=== PATIENT | female | born 1965 | race Caucasian/White ===

== ENCOUNTER 2018-01-21 15:49 | Emergency (ER) | payer MEDICARE ==
[2018-01-21 16:16] LABS: BASOPHILS % (AUTO) 0.4 % (0.0-5.0); EOSINOPHILS % (AUTO) 2.2 % (0.0-8.0); HEMATOCRIT 39.3 % (36-48); MEAN CORPUSCULAR HEMOGLOBIN 30.6 pg (27.0-33.0); MEAN CORPUSCULAR HGB CONC 34.8 g/dL (32.0-36.0); MEAN CORPUSCULAR VOLUME 87.9 fL (79-99); MONOCYTES % (AUTO) 7.2 % (3.0-13.0); NEUTROPHILS % (AUTO) 63.2 % (40.0-77.0); PLATELET COUNT (AUTO) 305 K/uL (130-400); RED BLOOD CELL COUNT(AUTO) 4.47 MIL/uL (4.00-5.50); WHITE BLOOD COUNT (AUTO) 7.3 K/uL (4.8-10.8)
[2018-01-21 16:27] LABS: CREATININE 0.8 mg/dL (0.5-1.5)
[2018-01-21 16:41] LABS: ALBUMIN 4.1 g/dL (3.5-5.0); BILIRUBIN,TOTAL 0.3 mg/dL (0.2-1.0); CREATINE KINASE MB 1.1 ng/mL (0.5-3.6); INR 0.97 (0.85-1.15); PROTHROMBIN TIME 10.2 SEC (9.6-11.6); TOTAL PROTEIN, SERUM 7.5 g/dL (6.0-8.3)
[2018-01-21] MEDS ORDERED: OCTYL 2-CYANOACRYLATE 1 EACH TP ONE (16:58)
[2018-01-21] MEDS ORDERED: TETANUS/DIPHTHERIA TOXOID [ADULT] 0.5 ML VIAL IM ONE (17:08)
[2018-01-21] MEDS ORDERED: TRAMADOL HCL 50 MG TABLET ONE ×2 (18:04→18:07)
== END 2018-01-21 18:26 | disposition home or self-care (01) ==
LOC: EDH 15:49
DX: S01.81XA Laceration without foreign body of other part of head, initial encounter (principal); S01.01XA Laceration without foreign body of scalp, initial encounter; S50.01XA Contusion of right elbow, initial encounter; S29.8XXA Other specified injuries of thorax, initial encounter; Z86.73 Personal history of transient ischemic attack (TIA), and cerebral infarction without residual deficits; Z98.890 Other specified postprocedural states; W18.39XA Other fall on same level, initial encounter; Y93.89 Activity, other specified; Y92.89 Other specified places as the place of occurrence of the external cause; Y99.8 Other external cause status
CPT/HCPCS: 12011; 36415; 70450; 70486; 71045; 72125; 80053; 82550; 82553; 84484; 85025; 85610; 85730; 90471; 90714; 93005

== ENCOUNTER 2018-10-14 18:41 | Inpatient (IN) | payer MEDICARE ==
[~2018-10-14] VITALS: Ht 162.6 cm; Wt 58.1 kg
[2018-10-14] MEDS ORDERED: ALTEPLASE 100 MG VIAL ONE (19:15)
[2018-10-14 19:23] LABS: BASOPHILS % (AUTO) 0.6 % (0.0-5.0); CREATININE 0.8 mg/dL (0.5-1.5); HEMATOCRIT 38.5 % (36-48); LYMPHOCYTES % (AUTO) 26.9 % (21.0-51.0); MEAN CORPUSCULAR HEMOGLOBIN 31.2 pg (27.0-33.0); MEAN CORPUSCULAR HGB CONC 33.7 g/dL (32.0-36.0); MEAN CORPUSCULAR VOLUME 92.5 fL (79-99); NEUTROPHILS % (AUTO) 63.5 % (40.0-77.0); PLATELET COUNT (AUTO) 225 K/uL (130-400); POTASSIUM 3.7 mmol/L (3.5-5.1); RED BLOOD CELL COUNT(AUTO) 4.16 MIL/uL (4.00-5.50); RED CELL DISTRIBUTION WIDTH 15.2 % (11.0-15.5); WHITE BLOOD COUNT (AUTO) 5.2 K/uL (4.8-10.8)
[2018-10-14 19:26] LABS: INR 0.92 (0.85-1.15); PARTIAL THROMBOPLASTIN TIME 25.1 SEC (26.3-35.5); PROTHROMBIN TIME 9.7 SEC (9.6-11.6)
[2018-10-14 19:29] LABS: BILIRUBIN,TOTAL 0.2 mg/dL (0.2-1.0); TOTAL PROTEIN, SERUM 7.3 g/dL (6.0-8.3)
[2018-10-14 21:14] LABS: APPEARANCE,URINE Clear (CLEAR); BILIRUBIN,URINE Negative (NEGATIVE); COLOR,URINE Yellow (YELLOW); GLUCOSE, URINE (UA) Negative (NEGATIVE); KETONES,URINE Negative (NEGATIVE); LEUKOCYTE ESTERASE ,URINE Small (NEGATIVE); NITRATE,URINE Positive (NEGATIVE); OCCULT BLOOD,URINE Negative (NEGATIVE); PH,URINE 6.5 (5.0-8.0); PROTEIN,URINE Negative (NEGATIVE); UROBILINOGEN,URINE 0.2 mg/dL (0.2-1.0)
[2018-10-14 21:22] LABS: AMPHET/METH SCREEN,URINE NEGATIVE (NEGATIVE); BARBITURATE SCREEN, URINE NEGATIVE (NEGATIVE); BENZODIAZEPINES SCREEN,URINE NEGATIVE (NEGATIVE); CANNABINOID SCREEN,URINE NEGATIVE (NEGATIVE); COCAINE SCREEN,URINE NEGATIVE (NEGATIVE); OPIATE SCREEN,URINE NEGATIVE (NEGATIVE); PHENCYCLIDINE SCREEN,URINE NEGATIVE (NEGATIVE)
[2018-10-14 21:45] LABS: BACTERIA,URINE Moderate /HPF (None Seen); RBC,URINE None Seen /HPF (0-1)
[2018-10-14 22:48] LABS: CREATINE KINASE, TOTAL 49 U/L (21-232); MYOGLOBIN 20 ng/mL (10-92)
[2018-10-14] MEDS ORDERED: HYDRALAZINE HCL 20 MG/ML VIAL IV PRN (23:00)
[2018-10-14] MEDS ORDERED: ONDANSETRON HCL 4 MG/2 ML VIAL IV PRN (23:00)
[2018-10-15] VITALS (18 sets, daily range): BP systolic 131–160; BP diastolic 67–109
[2018-10-15] MEDS ORDERED: SODIUM CHLORIDE 0.9% 1000ML 1,000 ML IV SCH (00:30)
[2018-10-15] MEDS ORDERED: ACETAMINOPHEN 325 MG TAB ONE (01:50)
[2018-10-15] MEDS ORDERED: LISI-617 PO (04:11)
[2018-10-15] MEDS ORDERED: CARV3.1262 PO (04:12)
[2018-10-15] MEDS ORDERED: SPIR25TA PO (04:13)
[2018-10-15] MEDS ORDERED: BUPR200T PO (04:15)
[2018-10-15] MEDS ORDERED: SERT100T12 PO (04:16)
[2018-10-15] MEDS ORDERED: BIOT5000 PO (04:17)
[2018-10-15] MEDS ORDERED: ESZO3 PO (04:18)
[2018-10-15] MEDS ORDERED: LORA10CA PO (04:20)
--- NOTE | 2018-10-15 07:00 | NUR ---
ASSESSMENT AA&OX3. NO DISTRESS NOTED. UNLABORED RESPIRATIONS. NO NEURO DEFICITS. NIH SCORE 0. SPOUSE AT BEDSIDE. INSTRUCTED ON PLAN OF CARE. REVIEWED FALL PREVENTION MEASURES & INSTRUCTED TO CALL FOR ASSISTANCE.
[2018-10-15] MEDS ORDERED: CEFTRIAXONE SODIUM 1 GM IVP SCH (07:30)
--- NOTE | 2018-10-15 09:30 | NUR ---
Aden LUNA. FOR DR Maximo SCHWARTZ HERE TO SEE PT. CARDIOLOGY CONSULTED
[2018-10-15] MEDS: FAMOTIDINE/PF 20 MG/2 ML VIAL IV SCH ×2 (09:46→20:21)
[2018-10-15] MEDS: ACETAMINOPHEN 325 MG TAB PO PRN ×2 (10:09→21:35)
--- NOTE | 2018-10-15 10:20 | NUR ---
DR HOPE HERE TO SEE PATIENT UPDATED. HE SPOKE TO PATIENT & SPOUSE AT BEDSIDE IN DETAIL REGARDING STATUS AND PLAN OF CARE.
--- NOTE | 2018-10-15 11:30 | NUR ---
[employer] NOTIFIED LEFT VOICEMAIL MESSAGE FOR ALEX [phone].
--- NOTE | 2018-10-15 12:15 | NUR ---
DYSPHAGIA EVAL COMPLETE. -S/S OF ASPIRATION. RECOMMEND REGULAR, THIN LIQUID DIET; PILLS WHOLE WITH LIQUIDS. PATIENT INFORMATION: Pt IS A 53 Y.O. FEMALE REFERRED FOR A BEDSIDE DYSPHAGIA EVALUATION SECONDARY TO ADMITTING DIAGNOSIS OF CVA. PT AAOX3 AND COOPERATIVE. Pt REPORTS NO ISSUES SWALLOWING AT THIS TIME. Pt HAS A PAST MEDICAL HISTORY SIGNIFICANT FOR CARDIOMYOPATHY, HYPERTENSION, CVA, PACEMAKER, NECK SURGERY , D&C, RENAL STONE ABLATION, BREAST AUGMENTATION, TUBAL LIGATION. EVALUATION: SWALLOW FUNCTION AND EFFICIENCY WITHIN FUNCTIONAL LIMITS. ORAL MOTOR STRENGTH, COORDINATION, AND ROM WITHIN FUNCTIONAL LIMITS. LARYNGEAL ELEVATION/EXCURSION STRONG WITH TIMELY PHARYNGEAL RESPONSE. NO OVERT SIGNS OR SYMPTOMS OF ASPIRATION PRESENT AT BEDSIDE. VOCAL QUALITY CLEAR WITH NO THROAT CLEAR OR COUGH RESPONSE PRESENT. RECOMMENDATIONS: 1. REGULAR TEXTURE, THIN LIQUID DIET; PILLS WHOLE WITH LIQUIDS. 2. COMPENSATORY STRATEGIES (PROPHYLAXIS): *SEATED AT 90 DEGREE ANGLE [id number] Addendum: 10/15/18 at 1347 by SARAH YOUNG [facility] Amended: Links added.
--- NOTE | 2018-10-15 12:30 | NUR ---
COGNITIVE EVAL COMPLETE. COGNITIVE-LINGUISTIC ABILITIES WITHIN FUNCTIONAL LIMITS. PATIENT INFORMATION: Pt IS A 53 YEAR OLD FEMALE REFERRED FOR A COGNITIVE-LINGUISTIC EVALUATION SECONDARY TO DIAGNOSIS OF CVA WHO RECEIVED TPA. PT AAOX3 AND COOPERATIVE. Pt HAS A PAST MEDICAL HISTORY SIGNIFICANT FOR CARDIOMYOPATHY, HYPERTENSION, CVA, PACEMAKER, NECK SURGERY , D&C, RENAL STONE ABLATION, BREAST AUGMENTATION, TUBAL LIGATION. EVALUATION: Pt AAOX3. Pt REQUESTS WANTS AND NEEDS INDEPENDENTLY. Pt INTELLIGIBLE AT 100% ACCURACY TO THE UNFAMILIAR LISTENER. Pt COMMUNICATING AT CONVERSATIONAL LEVEL WITH NO DEFICITS IDENTIFIED AT THIS TIME. Pt COMPLETED COGNITIVE-LINGUISTIC EVALUATION TARGETING: ORIENTATION, ATTENTION/CONCENTRATION, MEMORY (IMMEDIATE, SHORT-TERM AND LONG-TERM), PROBLEM SOLVING, LOGIC/REASONING/INFERENCE, THOUGHT ORGANIZATION, FUNCTIONAL MATH AND TELLING TIME. Pt ABLE TO COMPLETE TASKS WITH CORRECT AND TIMELY ANSWERS TO ALL SECTIONS. G-CODES SPOKEN LANGUAGE EXPRESSION: [id number] Addendum: 10/15/18 at 1351 by SARAH YOUNG [facility] Amended: Links added.
--- NOTE | 2018-10-15 13:49 | NUR ---
NO ANSWER FROM [employer] REP. CALLED AGAIN. CALLED MAIN OFFICE [phone]. SPOKE TO THOM. STATED SHE WILL RELAY MESSAGE TO ALEX.
--- NOTE | 2018-10-15 14:02 | NUR ---
HOME MED CONCERNED ABOUT NOT TAKING HER AM SCHEDULED COREG 3.125MG. NOTIFIED DR MOSQUEDA & UPDATED REGARDING V/S. RECEIVED ORDER OK FOR PATIENT TO TAKE AM DOSE NOW AND RESUME HOME DOSE (COREG 3.125MG PO BID). PATIENT TOOK HER OWN HOME MED AT THIS TIME.
--- NOTE | 2018-10-15 15:00 | NUR ---
RECEIVED CALL BACK FROM [employer] [facility]. STATED HE WILL BE HERE IN AM TO INTERROGATE DEVICE.
--- NOTE | 2018-10-15 17:00 | NUR ---
DR MEHTA HERE TO SEE PT UPDATED. HE SPOKE TO PATIENT IN DETAIL REGARDING STATUS AND PLAN OF CARE. ORDER RECEIVED TO DOWNGRADE TO PCCU.
[2018-10-15] MEDS ORDERED: CARVEDILOL 3.125 MG TABLET PO SCH (21:00)
[2018-10-15 21:18] LABS: BASOPHILS % (AUTO) 0.6 % (0.0-5.0); EOSINOPHILS % (AUTO) 2.3 % (0.0-8.0); HEMATOCRIT 37.9 % (36-48); LYMPHOCYTES % (AUTO) 36.3 % (21.0-51.0); MEAN CORPUSCULAR HEMOGLOBIN 31.2 pg (27.0-33.0); MEAN CORPUSCULAR HGB CONC 33.8 g/dL (32.0-36.0); MEAN CORPUSCULAR VOLUME 92.2 fL (79-99); MONOCYTES % (AUTO) 7.6 % (3.0-13.0); NEUTROPHILS % (AUTO) 53.2 % (40.0-77.0); NUCLEATED RED BLOOD CELLS 0.1 % (0.0-0.19); PLATELET COUNT (AUTO) 200 K/uL (130-400); RED BLOOD CELL COUNT(AUTO) 4.11 MIL/uL (4.00-5.50); RED CELL DISTRIBUTION WIDTH 14.6 % (11.0-15.5); WHITE BLOOD COUNT (AUTO) 4.1 K/uL (4.8-10.8)
[2018-10-15 21:31] LABS: ALBUMIN 3.8 g/dL (3.5-5.0); BILIRUBIN,TOTAL 0.1 mg/dL (0.2-1.0); CREATININE 0.9 mg/dL (0.5-1.5); POTASSIUM 4.3 mmol/L (3.5-5.1)
[2018-10-15 21:49] LABS: INR 0.95 (0.85-1.15); PARTIAL THROMBOPLASTIN TIME 25.8 SEC (26.3-35.5)
[2018-10-16 03:32] VITALS: BP 158/91
[2018-10-16 03:38] LABS: HEMATOCRIT 36.8 % (36-48); MEAN CORPUSCULAR HEMOGLOBIN 31.5 pg (27.0-33.0); MEAN CORPUSCULAR HGB CONC 33.9 g/dL (32.0-36.0); PLATELET COUNT (AUTO) 199 K/uL (130-400); RED BLOOD CELL COUNT(AUTO) 3.96 MIL/uL (4.00-5.50); RED CELL DISTRIBUTION WIDTH 15.1 % (11.0-15.5); WHITE BLOOD COUNT (AUTO) 3.9 K/uL (4.8-10.8)
[2018-10-16 04:32] LABS: CREATININE 0.8 mg/dL (0.5-1.5); POTASSIUM 4.2 mmol/L (3.5-5.1)
--- NOTE | 2018-10-16 07:03 | NUR ---
DR MOSQUEDA HERE TO SEE PATIENT UPDATED. NOTIFIED HIM OF CT DONE LAST NIGHT 24HR AFTER INFUSION OF TPA. HE REVIEWED RESULTS. PATIENT TO START ELIQUIS TODAY. PATIENT AA&OX3. NO NEUROLOGICAL DEFICITS NOTED.
--- NOTE | 2018-10-16 07:21 | NUR ---
DR MEHTA HERE TO SEE PT UPDATED. SPOKE TO PATIENT AND SPOUSE AT BEDSIDE IN DETAIL REGARDING STATUS AND PLAN OF CARE. POSSIBLE DISCHARGE TODAY PENDING NEURO APPROVAL.
[2018-10-16 07:41] VITALS: BP 151/90
[2018-10-16] MEDS ORDERED: APIXABAN 5 MG TABLET PO SCH (09:00)
[2018-10-16 11:41] VITALS: BP 150/92
--- NOTE | 2018-10-16 11:45 | NUR ---
DR HOPE HERE CLEARED FOR DISCHARGE. NOTIFIED DR MEHTA. STATED HE WILL BE HERE TO DISCHARGE PATIENT. ALSO PAGED DR MOSQUEDA TO ASK IF PATIENT NEEDS TO BE PRESCRIBED A STATIN AND CONTINUE HOME BP MEDS.
[2018-10-16] MEDS ORDERED: APIX5TAB PO (14:49)
[2018-10-16] MEDS ORDERED: ATOR40TA69 PO (14:49)
--- NOTE | 2018-10-17 10:22 | NUR ---
DC PLAN VISITED WITH PATIENT. PATIENT LIVES WITH SPOUSE. INDEPENDENT ABLE TO PERFORM ADL'S. PATIENT HAS NO SERVICES OR DME'S. FEELS SAFE TO RETURN HOME. ARIELA SIGNED INFO FOR ARIELA SENT TO [facility] SAID NO COVERAGE. MIGHT NOT QUALIFY FOR ASSISTANCE BASED ON INCOME. GAVE PATIENT 30 DAY COUPON. EXPLAINED TO TRY IT. PER CARDIO ONLY GAVE 30 DAY PRESCRIPTION MIGHT NOT NEED AFTER THAT. Addendum: 10/17/18 at 1031 by TRESA THOMPSON RN CM Amended: Links added.
== END 2018-10-16 16:18 | disposition home or self-care (01) | DRG 62 ==
LOC: EDH 18:41 → EDHIP 22:05 → 2CH 10-15 01:35
PROVIDERS: ADMIT Internal Medicine; ATTEND Internal Medicine
DX: I63.519 Cerebral infarction due to unspecified occlusion or stenosis of unspecified middle cerebral artery (principal); I50.30 Unspecified diastolic (congestive) heart failure; I11.0 Hypertensive heart disease with heart failure; R29.810 Facial weakness; Z79.01 Long term (current) use of anticoagulants; Z87.442 Personal history of urinary calculi; Z95.0 Presence of cardiac pacemaker
CPT/HCPCS: 36415; 70450; 70496; 70498; 71045; 80048; 80053; 80061; 80305; 81001; 82550; 82948; 83874; 84484; 85025; 85027; 85610; 85730; 92522; 92610; 93306; 99291; A4218; G0378; J0360; J0696; J2997; J3490

== ENCOUNTER → 2022-04-23 | Outpatient (CLI) | payer MEDICARE ==
[~2022-04-23] MED LIST: APIX5TAB PO; ATOR40TA69 PO; BIOT5000 PO; BUPR200T8 PO; CARV3.1262 PO; ESZO3 PO; LISI5TAB21 PO; LORA10CA PO; SERT-440 PO; SPIR25TA PO
== END | disposition home or self-care (01) ==
LOC: SHCH 09:08
PROVIDERS: ATTEND Internal Medicine Cardiovascular Disease
DX: I51.7 Cardiomegaly (principal); I48.92 Unspecified atrial flutter; I48.0 Paroxysmal atrial fibrillation; Z95.0 Presence of cardiac pacemaker; Z98.82 Breast implant status
CPT/HCPCS: 93306

== ENCOUNTER 2024-08-29 12:28 | Emergency (ER) | payer MEDICARE ==
[~2024-08-29] VITALS: Ht 162.6 cm; Wt 59.0 kg
[~2024-08-29 12:28] MED LIST changes: -ESZO3 PO; +ESZO3TAB65 PO
[2024-08-29 12:31] VITALS: BP 151/98; PULSE 86; RESP 18; TEMP 98.2
--- NOTE | 2024-08-29 12:46 | ERN ---
ED Note History of Present Illness Stated Complaint: HEART DEVICE CHECK Chief Complaint: Other Problems Time Seen by MD: 12:40 Dictation: PATIENT IS A 59-YEAR-OLD FEMALE HERE WITH A HISTORY A PACEMAKER THAT HAS BEEN BEEPING AT HER SINCE YESTERDAY WITH A LOW BATTERY. SHE DENIES ANY CHEST PAIN BACK PAIN SOB. 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 JUNE. SHE STATES SHE SPOKE TO MEI AT HIS OFFICE TODAY AND WAS ADVISED TO COME TO THE EMERGENCY ROOM AND THEN TO CALL WHEN SHE GOT HERE. Allergies: Coded Allergies: No Allergy Information Available (Verified Allergy, Unknown, 10/15/18) No Known Drug Allergies (Unverified Allergy, Unknown, 08/29/24) Home Meds Active Scripts Atorvastatin Calcium (LIPITOR) 40 Mg Tablet, 40 MG PO HS for 30 Days, #30 TAB Prov:TONI MEHTA Jr., MD 10/16/18 Apixaban (Eliquis) 5 Mg Tablet, 5 MG PO BID for 30 Days, #60 TAB Prov:TONI MEHTA Jr., MD 10/16/18 Reported Medications Loratadine (Claritin) 10 Mg Capsule, 10 MG PO DAILY, CAP 10/15/18 Eszopiclone (Lunesta) 3 Mg Tablet, 3 MG PO HS, TAB 10/15/18 Biotin (Biotin) 5,000 Mcg Tab.rapdis, 5000 MCG PO DAILY, TAB 10/15/18 Sertraline HCl (Sertraline HCl) 100 Mg Tablet, 150 MG PO DAILY, TAB 10/15/18 Bupropion HCl (Bupropion HCl Sr) 200 Mg Tablet.er, 450 MG PO DAILY, TAB 10/15/18 Spironolactone (Aldactone) 25 Mg Tablet, 25 MG PO DAILY, TAB 10/15/18 Carvedilol (Coreg) 3.125 Mg Tablet, 3.125 MG PO BID, TAB 10/15/18 Lisinopril (Lisinopril) 5 Mg Tablet, 5 MG PO DAILY, TAB 10/15/18 Past Medical History Past Medical History: CAD, High Cholesterol, Heart Disease, Hypertension Surgical History: None History: Not Applicable RN Note Reviewed/Agreed w/PFSH: Yes Review of System Dictation CONSTITUTIONAL: NEGATIVE EXCEPT FOR HPI QUESTIONABLE PACEMAKER BATTERY FAILURE HEAD/FACE: NEGATIVE EXCEPT FOR HPI EENT: NEGATIVE EXCEPT FOR HPI RESPIRATORY: NEGATIVE EXCEPT FOR HPI GASTROINTESTINAL/ABDOMINAL: NEGATIVE EXCEPT FOR HPI GENITOURINARY: NEGATIVE EXCEPT FOR HPI MUSCULOSKELETAL: NEGATIVE EXCEPT FOR HPI INTEGUMENTARY: NEGATIVE EXCEPT FOR HPI NEUROLOGICAL/PSYCH: NEGATIVE EXCEPT FOR HPI HEMATOLOGIC/LYMPHATIC: NEGATIVE EXCEPT FOR HPI ALL SYSTEMS NEGATIVE, EXCEPT NOTED ABOVE. 13 POINT REVIEW OF SYSTEMS ASSESSED AND ALL NEGATIVE EXCEPT FOR ABOVE. Initial Vital Sign VS Vital Signs Date Time Temp Pulse Resp B/P (MAP) Pulse Ox O2 Delivery O2 Flow Rate FiO2 08/29/24 12:31 98.2 86 18 151/98 98 Physical Exam Dictation VITAL SIGNS REVIEWED GENERAL APPEARANCE: ALERT, ORIENTED X 3, NO ACUTE DISTRESS, WELL DEVELOPED, NOURISHED. HEAD AND FACE: NON-TRAUMATIC. EYES: PERRL, PINK CONJUNCTIVAS, EYELID NO TRAUMA, ANTERIOR CHAMBER WITH ARCUS SENILIS. EARS: PINNAS INTACT AND NO SIGNS OF TRAUMA OR ERYTHEMA EAR CANALS CLEAR AND NO DISCHARGE TM NO ERYTHEMA NOSE: NO DISCHARGE, NO BLEEDING. OROPHARYNX: MOUTH NORMAL, TONGUE PINK, PHARYNX CLEAR,NO ERYTHEMA, TONSILS NO EXUDATES, NO ABSCESSES NOTED, MUCOUS MEMBRANE MOIST NECK: SUPPLE, NON-TENDER, NO THYROMEGALY, NO MASSES, NO JVD, NO BRUITS BREAST:DEFERRED CHEST:NO TENDERNESS, NO CREPITUS, NO PARADOXICAL MOVEMENT, NO RETRACTIONS LUNGS:CLEAR, WELL-VENTILATED, SYMMETRIC, NO RALES, NO WHEEZING, NO RHONCHI, NO STRIDOR, GOOD BREATH SOUNDS BILATERALLY HEART: REGULAR RATE, REGULAR RHYTHM, NO MURMUR, NO GALLOPS VASCULAR: NO PERIPHERAL EDEMA, ABDOMEN: SOFT, POSITIVE BOWEL SOUNDS, NONDISTENDED, NO GUARDING, NONTENDER, NO REBOUND, NO MASSES NO HEPATOMEGALY, NO SPLENOMEGALY, NO CHAIREZ'S SIGN, NO HERNIAS. RECTAL: DEFERRED GENITAL: DEFERRED NEUROLOGICAL: NORMAL SPEECH, MOTOR FUNCTION INTACT, SENSORY FUNCTION INTACT MUSCULOSKELETAL: NECK NONTENDER, FULL RANGE OF MOTION, BACK NONTENDER, FULL RANGE OF MOTION, EXTREMITIES: NONTENDER, FULL RANGE OF MOTION SKIN: COLOR PINK, DRY, NO TURGOR, NO RASH, NO LACERATIONS, NO ABRASIONS, NO CONTUSIONS. LYMPHATIC: DEFERRED Results (Laboratory/Radiology) Labs Reviewed?: Yes ED Course ED Course Orders Procedure Category Date Status Time Pt And Ptt LAB 08/29/24 Logged 12:42 Cbc With Differential LAB 08/29/24 Logged 12:42 B-Type Natriuretic LAB 08/29/24 Logged Peptide 12:42 Chest 1vw RAD 08/29/24 Logged 12:42 12 Lead Ekg Tracing- EKG 08/29/24 Logged Technical 12:42 Magnesium LAB 08/29/24 Logged 12:42 Troponin I High LAB 08/29/24 Logged Sensitivity 12:42 Urinalysis Profile LAB 08/29/24 Logged 12:42 Basic Metabolic Panel LAB 08/29/24 Logged 12:42 Pacemaker CPOE 08/29/24 Transmitted Interrogation (Er) 12:44 Vital Signs Date Time Temp Pulse Resp B/P (MAP) Pulse Ox O2 Delivery O2 Flow Rate FiO2 08/29/24 12:31 98.2 86 18 151/98 98 245 PAGED. 1255/SPOKE WITH DR. ANGEL AND SHE ASKED THAT WE HAD THE Soccer Manager PROGRAM AND I TOLD HER THAT WAS AVAILABLE. SHE SAID SHE WOULD BE DOWN TO THE EMERGENCY ROOM SHORTLY AND WOULD INTERROGATE PATIENT'S PACEMAKER. 1315/ DR ANGEL HERE AND INTERROGATED PM IN TRIAGE 2 ROOM. 1325/SPOKE WITH AFTER INTERROGATION. SHE STATES IT PATIENT HAS THREE MONTHS OF BATTERY LEFT AND SHE TURNED OFF THE ALARM. STATES PATIENT CAN BE DISCHARGED HOME BECAUSE SHE WILL BE FOLLOWING NEXT WEEK WITH IN HIS OFFICE FOR ELECTIVE BATTERY CHANGE. PATIENT IS AWARE OF HER FINDINGS. Medical Decision Making MDM MEDICAL DISCHARGE MAKING BASED ON INTERROGATION OF PACEMAKER BY DR. ANGEL. PATIENT WAS INFORMED THAT HER PACEMAKER HAS THREE MONTHS OF BATTERY LIFE AND THE ALARM WAS TURNED OFF AT THAT TIME PATIENT WILL BE FOLLOWING UP IN THE OFFICE OF NEXT WEEK. NOTE THAT PATIENT DID NOT COMPLETE THE EKG OR ANY LABS AT THIS TIME AND WENT HOME WITH HER . SHE DID NOT GET A PROPER DISCHARGE HOWEVER SHE SPOKE WITH DR. ANGEL PRIOR TO LEAVING TO THE HOSPITAL. DX & DISP Disposition: Discharge Departure Impression: Primary Impression: Pacemaker battery depletion Condition: Stable Additional Instructions: FOLLOW-UP WITH PRIMARY CARE PROVIDER IN 1 TO 2 DAYS. TAKE MEDICATIONS DIRECTED HERE IN THE EMERGENCY ROOM. OKAY TO CONTINUE HOME MEDICATIONS UNLESS OTHERWISE DISCUSSED DURING YOUR VISIT IN THE EMERGENCY ROOM TODAY. RETURN TO YOUR NEAREST EMERGENCY ROOM IF SYMPTOMS WORSEN OR IF THERE IS NO IMPROVEMENT. CALL 911 IF YOU NEED IMMEDIATE ASSISTANCE. TAKE TYLENOL OR MOTRIN [id number] NEEDED AND IF NO CONTRAINDICATIONS ARE PRESENT. INCREASE ORAL HYDRATION. A WOUND CULTURE OR URINE CULTURE WAS ORDERED HERE IN THE EMERGENCY ROOM DEPARTMENT PLEASE FOLLOW-UP WITH PRIMARY CARE PROVIDER AND ADVISE THEM TO GET REPEAT PORTS FROM OUR FACILITY. IF YOU HAD ANY GEGE WRAP/SPLINTS THAT WERE APPLIED HERE, PLEASE DO NOT REMOVE THEM UNTIL YOU SEE YOUR PRIMARY CARE OR SPECIALTY. KEEP YOUR APPOINTMENT WITH NEXT WEEK. Referrals: CARLA BRASWELL MD (PCP) Time of Disposition: 15:10 I have reviewed the case, and I agree with, Diagnosis and Plan ESVIN NOLASCO NP Aug 29, 2024 12:46
--- NOTE | 2024-08-29 15:25 | NUR ---
PER HOURLY SIGN LANGUAGE INTERPRETER ESVIN, PT HAD PACER INTERROGATED AND WAS D/C'D W/ NO OTHER COMPLAINTS
== END 2024-08-29 15:30 | disposition home or self-care (01) ==
LOC: EDH 12:28
DX: Z45.010 Encounter for checking and testing of cardiac pacemaker pulse generator [battery] (principal); E78.00 Pure hypercholesterolemia, unspecified; I11.9 Hypertensive heart disease without heart failure; I25.10 Atherosclerotic heart disease of native coronary artery without angina pectoris; Z79.01 Long term (current) use of anticoagulants; Z79.899 Other long term (current) drug therapy
CPT/HCPCS: 99282

== ENCOUNTER → 2024-09-17 | Outpatient (CLI) | payer MEDICARE | END | disposition home or self-care (01) | LOC: SHCH 12:33 | PROVIDERS: ATTEND Internal Medicine Cardiovascular Disease | DX: I42.0 Dilated cardiomyopathy (principal) | CPT/HCPCS: 93306 ==

== ENCOUNTER → 2024-10-23 | Outpatient (CLI) | payer MEDICARE ==
[2024-10-23 12:17] LABS: BASOPHILS # (AUTO) 0.02 K/uL (0.00-0.20); BASOPHILS % (AUTO) 0.4 % (0.0-5.0); EOSINOPHILS # (AUTO) 0.15 K/uL (0.00-0.70); EOSINOPHILS % (AUTO) 2.9 % (0.0-8.0); HEMATOCRIT 29.2 % (36-48); IMMATURE GRANULOCYTE ABSOLUTE 0.02 K/uL (0-1); LYMPHOCYTES # (AUTO) 1.3 K/uL (1.0-4.8); LYMPHOCYTES % (AUTO) 24.4 % (21.0-51.0); MEAN CORPUSCULAR HEMOGLOBIN 29.4 pg (27.0-33.0); MEAN CORPUSCULAR HGB CONC 31.8 g/dL (32.0-36.0); MEAN CORPUSCULAR VOLUME 92.4 fL (79-99); MONOCYTES # (AUTO) 0.4 K/uL (0.1-1.0); NEUTROPHILS # (AUTO) 3.3 K/uL (1.8-7.7); NEUTROPHILS % (AUTO) 63.9 % (40.0-77.0); PLATELET COUNT (AUTO) 272 K/uL (130-400); RED BLOOD CELL COUNT(AUTO) 3.16 MIL/uL (4.00-5.50); RED CELL DISTRIBUTION WIDTH 12.6 % (11.0-15.5); WHITE BLOOD COUNT (AUTO) 5.1 K/uL (4.8-10.8)
== END | disposition home or self-care (01) ==
LOC: LAB 09:56
PROVIDERS: ATTEND Internal Medicine Cardiovascular Disease
DX: D62 Acute posthemorrhagic anemia (principal); Z79.899 Other long term (current) drug therapy
CPT/HCPCS: 36415; 85025

== ENCOUNTER → 2024-11-27 | Outpatient (CLI) | payer MEDICARE ==
[2024-11-27 15:39] LABS: BASOPHILS # (AUTO) 0.04 K/uL (0.00-0.20); BASOPHILS % (AUTO) 0.6 % (0.0-5.0); EOSINOPHILS # (AUTO) 0.17 K/uL (0.00-0.70); EOSINOPHILS % (AUTO) 2.8 % (0.0-8.0); HEMATOCRIT 42.8 % (36-48); IMMATURE GRANULOCYTE ABSOLUTE 0.01 K/uL (0-1); LYMPHOCYTES # (AUTO) 1.6 K/uL (1.0-4.8); MEAN CORPUSCULAR HEMOGLOBIN 29.3 pg (27.0-33.0); MEAN CORPUSCULAR HGB CONC 31.3 g/dL (32.0-36.0); MEAN CORPUSCULAR VOLUME 93.7 fL (79-99); MONOCYTES # (AUTO) 0.5 K/uL (0.1-1.0); NEUTROPHILS # (AUTO) 3.9 K/uL (1.8-7.7); NEUTROPHILS % (AUTO) 62.4 % (40.0-77.0); PLATELET COUNT (AUTO) 274 K/uL (130-400); RED BLOOD CELL COUNT(AUTO) 4.57 MIL/uL (4.00-5.50); RED CELL DISTRIBUTION WIDTH 13.2 % (11.0-15.5); WHITE BLOOD COUNT (AUTO) 6.2 K/uL (4.8-10.8)
== END | disposition home or self-care (01) ==
LOC: LAB 11:25
PROVIDERS: ATTEND Physician Assistant
DX: D64.9 Anemia, unspecified (principal)
CPT/HCPCS: 36415; 85025

== ENCOUNTER → 2024-12-29 | Outpatient (CLI) | payer MEDICARE ==
--- NOTE | 2024-12-29 23:04 | HMCSR ---
APPROVED REPORT EXAM: Two-dimensional and M-mode echocardiogram with Doppler and color Doppler. INDICATION ICD: I42.0 Dilated cardiomyopathy, Z95.810, I44.7 2D Dimensions RVDd2.7 cmLVEF(%)33.7 (>50%)LVED Vol(simp.)76.0 mL IVSd1.5 (0.7-1.1cm)FS(%)16 %LVES Vol(simp.)47.0 mL LVDd4.1 (3.8-5.6cm)LA (2D)2.9 (1.6-4.0cm)LVEF(%, simp.)38 % PWd0.9 (0.7-1.1cm)Ao Root(2D)2.8 (2.0-3.7cm)LA ESV INDEX (BP)15.62 mL/m2 IVSs1.3 cmLVOT diam2.3 (1.8-2.4cm) LVDs3.4 (2.5-4.0cm) PWs1.0 cm M-Mode Dimensions EPSS0.8 cm LA (MM)2.9 (1.6-4.0cm) Ao Root(MM)3.1 (2.0-3.7cm) Aortic Valve AoV Vmax1.2 m/Giancarlo Peak GR6.1 mmHgLVOT Vmax1.0 m/s AoV VTI0.2 mAo Mean GR2.7 mmHgLVOT VTI0.14 m JOSE ARMANDO (VMAX)3.09 cm2AVA (VTI) 3.1 cm2 Mitral Valve MV E Vmax33.4 cm/sDECEL Time78 ms MV A Vmax82.1 cm/sP 1/2 T21 ms E/A ratio0.4MVA (PHT)10.6 cm2 TDI E/E' Medial6.8E/E' Lateral6.2 Medial E' Peak V4.89 cm/sLateral E' Peak V5.38 cm/s Pulmonary Valve PV Vmax0.9 m/sPV Mean GR1.8 mmHg PV Peak GR3.0 mmHg Tricuspid Valve RAP (EST) 3 mmHgRVSP3.0 mmHg Left Ventricle The left ventricle is normal size. There is paradoxical septal wall motion noted. The other casas are grossly normal in function. Moderate concentric left ventricular hypertrophy. Left ventricle systoli c function is low-normal, estimated LVEF 50%. Indeterminate diastolic function. Right Ventricle The right ventricle is normal size. The right ventricular systolic function is normal. Device lead is present in the right ventricle. Atria The left atrium size is normal. The right atrium size is normal. Aortic Valve Aortic valve is trileaflet. The leaflets are mildly thickened and calcified. Trace aortic regurgitati on. There is no aortic valvular stenosis. Mitral Valve The mitral valve is normal in structure and function. The leaflets are mildly thickened and calcified . Trace mitral regurgitation. There is no mitral valve stenosis. Tricuspid Valve The tricuspid valve is normal in structure. Trace tricuspid regurgitation. RVSP is normal. Pulmonic Valve Pulmonic valve is not well visualized. Great Vessels The aortic root is normal in size. The IVC is normal in size and collapses >50% with inspiration. Pericardium There is no pericardial effusion. Prominent anterior epicardial fat pad is present. Other Information Quality : Adequate Conclusion Moderate concentric left ventricular hypertrophy. There is paradoxical septal wall motion noted. The other casas are grossly normal in function. Left ventricle systolic function is low-normal, estimated LVEF 50%. Indeterminate diastolic function. Trace aortic regurgitation. Trace mitral regurgitation. Trace tricuspid regurgitation. PASP is normal. There is no pericardial effusion.
== END | disposition home or self-care (01) ==
LOC: RAH 13:35
PROVIDERS: ATTEND Internal Medicine Cardiovascular Disease
DX: I08.0 Rheumatic disorders of both mitral and aortic valves (principal); I42.9 Cardiomyopathy, unspecified; I44.7 Left bundle-branch block, unspecified; Z95.810 Presence of automatic (implantable) cardiac defibrillator
CPT/HCPCS: 93306

== ENCOUNTER 2025-08-26 08:36 | Day surgery (SDC) | payer MEDICARE ==
[2025-08-23 11:38] LABS: IMMATURE GRANULOCYTE ABSOLUTE 0.02 K/uL (0-1); NUCLEATED RED BLOOD CELLS 0.0 % (0.0-0.19); PLATELET COUNT (AUTO) 234 K/uL (130-400); RED BLOOD CELL COUNT(AUTO) 4.28 MIL/uL (4.00-5.50); RED CELL DISTRIBUTION WIDTH 13.0 % (11.0-15.5); WHITE BLOOD COUNT (AUTO) 5.6 K/uL (4.8-10.8)
[2025-08-23 11:58] VITALS: BP 133/77; PULSE 67; RESP 16; TEMP 97.9
[2025-08-23 11:59] LABS: CREATININE 0.7 mg/dL (0.5-1.0); GLOMERULAR FILTR. RATE CALC 98.0 mL/min (>90); GLUCOSE,RANDOM 94.0 mg/dL (70-105); SODIUM SERUM 140.0 mmol/L (136-145); UREA NITROGEN, BLOOD 13.0 mg/dL (7-18)
[2025-08-23 12:05] LABS: INR 1.01 (0.85-1.15)
--- NOTE | 2025-08-23 18:45 | EKG ---
[facility] Test Date: 2025-08-23 Test Time: 12:11:43 Pat Name: MASON PAZ Department: [facility] Room: Gender: F Snow Fence Erector: [id number] : 1965 Requested By: DANIELLE JUNE Order Number: [id number] Reading MD: Sam Frankel Measurements Intervals [place] Rate: 60 P: 40 MO: 194 QRS: -31 QRSD: 154 T: 163 QT: 492 QTc: 492 Interpretive Statements Normal sinus rhythm Left axis deviation Left bundle branch block Compared to ECG 01/21/2018 15:49:41 Left-axis deviation now present Left bundle-branch block now present AV dual-paced complex(es) or rhythm no longer present Electronically Signed On 08-23-2025 20:13:23 POLICE BOOKING OFFICER by Sam Frankel Please click the below link to view image of tracing.
[2025-08-26] VITALS (9 sets, daily range): BP systolic 109–137; BP diastolic 60–82; PULSE 62–86; RESP 15–18; TEMP 97.8–97.9
[~2025-08-26] VITALS: Ht 163.8 cm; Wt 56.0 kg
[~2025-08-26 08:36] MED LIST changes: +AEC81 PO; -APIX5TAB PO; +ASPI-1190 PO; -BIOT5000 PO; +BUPR-112 PO; -BUPR200T8 PO; +CHOL100046 PO; -ESZO3TAB65 PO; +FOLATE PO; -LORA10CA PO; +OMEP20CA12 PO; -SPIR25TA PO; +ZOLP12.570 PO
[2025-08-26] MEDS: 0.9%NACL 1000ML 1,000 ML IV SCH (09:29)
[2025-08-26] MEDS ORDERED: CYAN250010 PO (09:36)
[2025-08-26] MEDS ORDERED: SODIUM BICARB 50MEQ 50ML VIAL 50 ML ONE (12:36)
[2025-08-26] MEDS ORDERED: LIDOCAINE HCL 1% MDV 50ML VIAL ONE (12:36)
[2025-08-26] MEDS ORDERED: MIDAZOLAM HCL 1 MG/ML 2ML VIAL ONE ×5 (13:13→15:11)
[2025-08-26] MEDS ORDERED: SUCRALFATE 1 GM/10 ML PO ONE (13:30)
[2025-08-26] MEDS ORDERED: IOHEXOL-350 50ML VIAL IV ONE (13:54)
[2025-08-26] MEDS ORDERED: BACITRACIN 1 EACH PACKET TP ONE (15:22)
[2025-08-26] MEDS ORDERED: TRAM50TA4 PO (16:00)
--- NOTE | 2025-08-26 17:50 | NUR ---
RE: CXR REPORTED RESULTS OF CXR TO DR JUNE. OK TO PROCEED WITH DISCHARGE PER MD.
--- NOTE | 2025-08-26 18:00 | NUR ---
PRESSURE DRESSING REMOVED. SCANT AMOUNT OF PINK TINGED BLOOD NOTED ON DRESSING. INSTRUCTED PATIENT AND SPOUSE ON DRESSING CHANGES. BOTH VERBALIZED UNDERSTANDING.
--- NOTE | 2025-08-26 18:10 | NUR ---
PATIENT DISCHARGED FROM FACILITY VIA WHEELCHAIR BY RIANNA TIRADO AND ASSISTED INTO PRIVATE VEHICLE DRIVEN BY SPOUSE.
--- NOTE | 2025-08-26 22:07 | HMCIMG ---
EXAM: CR CHEST 1 VIEW CLINICAL HISTORY: s/p ICD upgrade COMPARISON: None provided. TECHNIQUE: AP view of the chest were obtained. FINDINGS: Heart and Mediastinum: Cardiomediastinal silhouette is within normal limits. A left-sided cardiac implantable cardioverter-defibrillator (ICD) is identified with leads terminating in the right atrium and right ventricle, in expected positions. Lungs and Pleura: No focal airspace consolidation. No pleural effusion or pneumothorax. Bones: Postsurgical changes of lower cervical spine fusion are noted. No acute osseous abnormality. Soft Tissues: Surgical loreto are seen overlying the left upper anterior chest wall. IMPRESSION: 1.Status post ICD upgrade with left-sided ICD and leads in expected position. 2.No acute cardiopulmonary abnormality. /Doucette
--- NOTE | 2025-08-27 08:14 | EKG ---
[facility] Test Date: 2025-08-26 Test Time: 17:56:47 Pat Name: MASON PAZ [facility] Room: Gender: F Child Welfare Director: [id number] : 1965 Requested By: DANIELLE JUNE Order Number: [id number] Reading MD: Sam Frankel Measurements Intervals [place] Rate: 72 P: 129 SD: 70 QRS: -44 QRSD: 133 T: 142 QT: 443 QTc: 484 Interpretive Statements Ventricular-paced rhythm Compared to ECG 08/23/2025 12:11:43 Sinus rhythm no longer present Left-axis deviation no longer present Left bundle-branch block no longer present Electronically Signed On 08-28-2025 08:21:38 FLUE TILE PRESS OPERATOR by Sam Frankel Please click the below link to view image of tracing.
== END 2025-08-26 18:10 | disposition home or self-care (01) ==
LOC: DAH 08:36
PROVIDERS: ATTEND Internal Medicine Cardiovascular Disease
DX: I44.7 Left bundle-branch block, unspecified (principal); I50.32 Chronic diastolic (congestive) heart failure; I42.8 Other cardiomyopathies; I11.0 Hypertensive heart disease with heart failure; E78.00 Pure hypercholesterolemia, unspecified; F32.A Depression, unspecified; Z98.891 History of uterine scar from previous surgery; Z98.51 Tubal ligation status; Z88.8 Allergy status to other drugs, medicaments and biological substances; Z79.899 Other long term (current) drug therapy; Z98.890 Other specified postprocedural states
CPT/HCPCS: 80048; 85025; 85610; 85730; 36415; 93005 ×2; 33216; 99156; 99157 ×6; 71045; A4223 ×3; C1769; C1898; J3010 ×2; J0690; J7030; J0665; J3490 ×2; J2250 ×4; Q9967; A4215; A4221; A4663; A4606